=== PATIENT | female | born 1945 | race Hispanic/Latino ===

== ENCOUNTER 2019-05-16 18:19 | Emergency (ER) | payer MEDICARE ==
--- NOTE | 2019-05-16 19:45 | Cat Scan Report ---
NONENHANCED CT SCAN OF THE HEAD: INDICATION / CLINICAL INFORMATION: 74 years Female; pain/bruising after being hit by tree branch. TECHNIQUE: Routine CT head without contrast. All CT scans at this location are performed using CT dos e reduction for ALARA by means of automated exposure control. COMPARISON: None. FINDINGS: BRAIN / INTRACRANIAL CONTENTS: Soft tissue hematoma over the left lower eyelid, Thickening of the pos terior sclera below the optic nerve head; optic nerve sheath complexes normal bilaterally; retrobulba r spaces and subperiorbital spaces are normal. No subdural or epidural hematoma; no current posterior brain Inferior left posterior interhemispheric fissure has increased CT density. It is not very impressive. Subtle posttraumatic subarachnoid hemorrhage could not be excluded. I do not see intraventricular he morrhage. Interpeduncular cistern is normal. Chronic ischemic changes are seen corpus stratum. CRANIOCERVICAL JUNCTION: No significant abnormality. ORBITS: No significant abnormality of visualized orbits. SINUSES / MASTOIDS: No significant abnormality of the visualized paranasal sinuses or mastoid air finesse ls. ADDITIONAL FINDINGS: None. IMPRESSION: Soft tissue swelling over the left lower eyelid; thickening of posterior sclera on the left side belo w the optic nerve head; normal retrobulbar are spaces; questionable increased CT density in the infer ior posterior interhemispheric fissure at the level of sella turcica Artifact Subtle posttraumatic morales barachnoid hemorrhage Signer Name: Davina Veronica MD Signed: 05/16/2019 7:40 PM Workstation Name: [id number]
--- NOTE | 2019-05-16 19:51 | Cat Scan Report ---
CT maxillofacial without contrast CLINICAL HISTORY: Facial pain and trauma. FINDINGS: There is notable left periorbital soft tissue edema. The motion degrades image quality at. However, there appears to be a fracture along the left orbital floor with milder degree of depression at. There are mild adjacent inflammatory changes involving the inferior left orbital soft tissues as well as mild opacification along the inferior left maxillary sinus. Additionally, there appears to b e a defect and linear lucency along the superior medial orbital wall with faint lucency along the adj acent intracranial segment. This finding would also be indicative of slightly displaced fracture. The re is thickening of the posterior and medial sclera which is of unclear etiology though correlation w ould be needed regarding hematoma in this posttraumatic patient. The facial bones otherwise appear intact. The remaining paranasal sinuses are pneumatized. There is m ild deviation of the nasal septum toward the left. There is irregularity of the right mandibular cond yle with well corticated ossification along the anterior, medial aspect of the right TMJ. This findin g may be on an advanced degenerative or possibly chronic traumatic basis and correlation would be nee ded at. Moderate to marked arthritic changes are seen on the left. CT HEAD AND FACIAL BONES WITHOUT C ONTRAST. IMPRESSION: There is a mildly depressed fracture involving left orbital floor as well as slightly displaced fract ure of the superior orbital wall as detailed above. There is prominent left periorbital hematoma. Additionally, there is thickening of the posterior and medial left optic globe indicative of scleral hematoma. Signer Name: Gerson Ruano MD Signed: 05/16/2019 7:47 PM Workstation Name: [id number]
--- NOTE | 2019-05-16 19:51 | Cat Scan Report ---
Exam: CT cervical spine History: pain/bruising after being hit by tree branch; Technique: Contiguous thin cut axial images obtained through the cervical spine. Sagittal and welch l reconstructions performed by the technologist. All CT scans at this location are performed using CT dose reduction for ALARA by means of automated exposure control. Findings: No priors. There is no evidence of fracture or traumatic subluxation. Vertebral bodies are normal in height and alignment. Spondylotic changes are seen bilaterally at C4-C5 disc level narrowing both neuroforamina. Broad-based nonlateralizing bony spur is seen at C5-C6 disc level. Right neuroforamen is narrowed. At C6-C7 level, broad-based bony spur is seen more towards the left side. At C7-T1 disc level, shallow bony spur is seen. No significant degenerative change seen in the uncinate or facet joints. Surrounding soft tissues are grossly normal. Impression: No signs of acute bony trauma to the cervical spine. Signer Name: Davina Veronica MD Signed: 05/16/2019 7:47 PM Workstation Name: [id number]
[2019-05-16 19:53] LABS: Hematocrit 40.4 % (30.3-42.9); Hemoglobin 13.8 gm/dl (10.1-14.3); Mean Corpuscular HGB Conc 34 % (30-34); Mean Corpuscular Volume 89 fl (79-97); Platelet Count 266 K/mm3 (140-440); Red Blood Count 4.54 M/mm3 (3.65-5.03); Red Cell Distribution Width 12.6 % (13.2-15.2)
--- NOTE | 2019-05-16 20:03 | Emergency Department Report ---
ED Head Trauma HPI - General Chief complaint: Eye Problems Stated complaint: MAHAN HIT PT IN EYE Time Seen by Provider: 05/16/19 19:45 Source: patient Mode of arrival: Ambulatory Limitations: No Limitations - History of Present Illness Initial comments: Patient is a 74-year-old female that presents emergency room with complaints of left eye pain and headache. Patient states she was hit in her left side of her head and left eye with a branch while doing yard work. Patient denies loss of consciousness. Patient states she lost the vision in her left eye as soon as it happened. Patient states that her pain in her left head and left eye is a 10 out of 10. Patient states the pain is worse with movement and better with rest. Patient states that her vision is worse with movement of her eye. Patient states she has neck pain. Patient states her neck pain is a 4 out of 10. Patient states her neck pain is better with rest and worse with movement. Patient states the vision in her right eye is normal. Patient denies chest pain. Patient denies fever and chills. Patient denies shortness of breath. Patient denies other pain. MD Complaint: head injury, head pain -: Sudden Mechanism of Injury: other Location: frontal, face Loss of Consciousness: no Previous Trauma to this Area: No Place: home Severity: severe Severity scale (0 -10): 10 Quality: sharp Consistency: constant Other Injuries: laceration, eye(s) Context: on Aspirin Associated Symptoms: vision changes, vertigo, neck pain. denies: confusion, amnesia, repetitive questioning, nausea, vomiting, syncope, numbness, weakness, tingling - Related Data Allergies/Adverse reactions: Allergies Allergy/AdvReac Type Severity Reaction Status Date / Time acetaminophen [From Percocet] Allergy Unknown Verified 05/16/19 18:39 oxycodone [From Percocet] Allergy Unknown Verified 05/16/19 18:39 Sulfa (Sulfonamide Allergy Rash Verified 05/16/19 18:39 Antibiotics) ED Review of Systems ROS: Stated complaint: MAHAN HIT PT IN EYE Other details as noted in HPI Constitutional: denies: chills, fever Eyes: eye pain, vision change. denies: eye discharge ENT: denies: ear pain, throat pain Respiratory: denies: cough, shortness of breath, SOB with exertion, SOB at rest, wheezing Cardiovascular: denies: chest pain, palpitations Endocrine: no symptoms reported Gastrointestinal: denies: abdominal pain, nausea, vomiting, diarrhea Genitourinary: denies: urgency, dysuria, discharge Musculoskeletal: denies: back pain, joint swelling, arthralgia Skin: denies: rash, lesions Neurological: headache. denies: weakness, paresthesias Psychiatric: denies: anxiety, depression Hematological/Lymphatic: denies: easy bleeding, easy bruising ED Past Medical Hx - Past Medical History Previous Medical History?: Yes Hx Hypertension: Yes Additional medical history: vertigo - Surgical History Past Surgical History?: Yes Hx Cholecystectomy: Yes Additional Surgical History: hysterectomy - Family History Family history: no significant - Social History Smoking Status: Never Smoker Substance Use Type: None ED Physical Exam - General Limitations: No Limitations General appearance: alert, in no apparent distress - Head Head exam: Present: atraumatic, normocephalic - Eye Eye exam: Present: periorbital swelling, periorbital tenderness, other (aqueous fluid noted within the left globe. Unable to see pupil of left eye. Right eye pupil is reactive to light.) - ENT ENT exam: Present: mucous membranes moist - Neck Neck exam: Present: normal inspection - Respiratory Respiratory exam: Present: normal lung sounds bilaterally. Absent: respiratory distress, wheezes, rales - Cardiovascular Cardiovascular Exam: Present: regular rate, normal rhythm. Absent: systolic murmur, diastolic murmur, rubs, gallop - GI/Abdominal GI/Abdominal exam: Present: soft, normal bowel sounds. Absent: distended, tenderness, guarding - Rectal Rectal exam: Present: deferred - Extremities Exam Extremities exam: Present: normal inspection - Back Exam Back exam: Present: normal inspection - Neurological Exam Neurological exam: Present: alert, oriented X3 - Psychiatric Psychiatric exam: Present: normal affect, normal mood - Skin Skin exam: Present: warm, dry, normal color, abrasion, other (lac to inferior and superior eye lids. bleeding controlled. ). Absent: rash ED Course Vital Signs 05/16/19 05/16/19 05/16/19 18:49 19:49 20:00 Temperature 98.7 F Pulse Rate 95 H 90 88 Respiratory 16 14 19 Rate Blood Pressure 195/86 149/81 O2 Sat by Pulse 100 96 Oximetry 05/16/19 05/16/19 20:16 20:29 Temperature 98.7 F Pulse Rate 90 90 Respiratory 28 H 28 H Rate Blood Pressure 168/66 O2 Sat by Pulse 98 98 Oximetry - Reevaluation(s) Reevaluation #1: Patient is in our waiting room and the patient has been moved to room 6. Initial evaluation done. 05/16/19 19:45 - Consultations Consultation #1: Radiologist called with results of CT of head, patient has sustained a ruptured globe and a posttraumatic subarachnoid hemorrhage. 05/16/19 19:43 Consultation #2: Transfer center paged at [place] [facility] 05/16/19 19:52 Patient has been accepted by Dr.UDOBI Jennifer. 05/16/19 20:01 - Lab Data Result diagrams: 05/16/19 19:24 05/16/19 19:24 Lab Results 05/16/19 05/16/19 Range/Units 19:24 19:24 WBC 7.5 (4.5-11.0) K/mm3 RBC 4.54 (3.65-5.03) M/mm3 Hgb 13.8 (10.1-14.3) gm/dl Hct 40.4 (30.3-42.9) % MCV 89 (79-97) fl MCH 30 (28-32) pg MCHC 34 (30-34) % RDW 12.6 L (13.2-15.2) % Plt Count 266 (140-440) K/mm3 Sodium 142 (137-145) mmol/L Potassium 3.6 (3.6-5.0) mmol/L Chloride 101.4 (98-107) mmol/L Carbon Dioxide 24 (22-30) mmol/L Anion Gap 20 mmol/L BUN 15 (7-17) mg/dL Creatinine 0.7 (0.7-1.2) mg/dL Estimated GFR > 60 ml/min BUN/Creatinine Ratio 21 % Glucose 114 H (65-100) mg/dL Calcium 10.1 (8.4-10.2) mg/dL - Radiology Data Radiology results: report reviewed NONENHANCED CT SCAN OF THE HEAD: INDICATION / CLINICAL INFORMATION: 74 years Female; pain/bruising after being hit by tree branch. TECHNIQUE: Routine CT head without contrast. All CT scans at this location are performed using CT dose reduction for ALARA by means of automated exposure control. COMPARISON: None. FINDINGS: BRAIN / INTRACRANIAL CONTENTS: Soft tissue hematoma over the left lower eyelid, Thickening of the posterior sclera below the optic nerve head; optic nerve sheath complexes normal bilaterally; retrobulbar spaces and subperiorbital spaces are normal. No subdural or epidural hematoma; no current posterior brain Inferior left posterior interhemispheric fissure has increased CT density. It is not very impressive. Subtle posttraumatic subarachnoid hemorrhage could not be excluded. I do not see intraventricular hemorrhage. Interpeduncular cistern is normal. Chronic ischemic changes are seen corpus stratum. CRANIOCERVICAL JUNCTION: No significant abnormality. ORBITS: No significant abnormality of visualized orbits. SINUSES / MASTOIDS: No significant abnormality of the visualized paranasal sinuses or mastoid air cells. ADDITIONAL FINDINGS: None. IMPRESSION: Soft tissue swelling over the left lower eyelid; thickening of posterior sclera on the left side below the optic nerve head; normal retrobulbar are spaces; questionable increased CT density in the inferior posterior interhemispheric fissure at the level of sella turcica Artifact Subtle posttraumatic subarachnoid hemorrhage CT maxillofacial without contrast CLINICAL HISTORY: Facial pain and trauma. FINDINGS: There is notable left periorbital soft tissue edema. The motion degrades image quality at. However, there appears to be a fracture along the left orbital floor with milder degree of depression at. There are mild adjacent inflammatory changes involving the inferior left orbital soft tissues as well as mild opacification along the inferior left maxillary sinus. Additionally, there appears to be a defect and linear lucency along the superior medial orbital wall with faint lucency along the adjacent intracranial segment. This finding would also be indicative of slightly displaced fracture. There is thickening of the posterior and medial sclera which is of unclear etiology though correlation would be needed regarding hematoma in this posttraumatic patient. The facial bones otherwise appear intact. The remaining paranasal sinuses are pneumatized. There is mild deviation of the nasal septum toward the left. There is irregularity of the right mandibular condyle with well corticated ossification along the anterior, medial aspect of the right TMJ. This finding may be on an advanced degenerative or possibly chronic traumatic basis and correlation would be needed at. Moderate to marked arthritic changes are seen on the left. CT HEAD AND FACIAL BONES WITHOUT CONTRAST. IMPRESSION: There is a mildly depressed fracture involving left orbital floor as well as slightly displaced fracture of the superior orbital wall as detailed above. There is prominent left periorbital hematoma. Additionally, there is thickening of the posterior and medial left optic globe indicative of scleral hematoma. Exam: CT cervical spine History: pain/bruising after being hit by tree branch; Technique: Contiguous thin cut axial images obtained through the cervical spine. Sagittal and coronal reconstructions performed by the technologist. All CT scans at this location are performed using CT dose reduction for ALARA by means of automated exposure control. Findings: No priors. There is no evidence of fracture or traumatic subluxation. Vertebral bodies are normal in height and alignment. Spondylotic changes are seen bilaterally at C4-C5 disc level narrowing both neuroforamina. Broad-based nonlateralizing bony spur is seen at C5-C6 disc level. Right neuroforamen is narrowed. At C6-C7 level, broad-based bony spur is seen more towards the left side. At C7-T1 disc level, shallow bony spur is seen. No significant degenerative change seen in the uncinate or facet joints. Surrounding soft tissues are grossly normal. Impression: No signs of acute bony trauma to the cervical spine. - Medical Decision Making Patient is a 74-year-old female that presents emergency room for left eye pain and left facial pain and neck pain. Patient was hit in the face with a branch while doing yardwork at home. Patient also complained of loss of vision in her left eye. Patient had CT and labs done. Labs were essentially unremarkable. Patient's CT shows a ruptured left globe and a possible subtle posttraumatic subarachnoid hemorrhage. Patient was transferred to [place] [facility]. Patient transferred via ground EMS. - Differential Diagnosis facial trauma, eye pain, laceration, ICH, eye injury Critical Care Time: Yes Critical care time in (mins) excluding proc time.: 45 Critical care attestation.: If time is entered above; I have spent that time in minutes in the direct care of this critically ill patient, excluding procedure time. Critical Care Time: 45 minutes ED Disposition Clinical Impression: Change in vision, Loss of vision, Neck pain, SAH (subarachnoid hemorrhage) Head injury Qualifiers: Encounter type: initial encounter Qualified Code(s): S09.90XA - Unspecified injury of head, initial encounter Ruptured globe of left eye Qualifiers: Encounter type: initial encounter Qualified Code(s): S05.32XA - Ocular laceration without prolapse or loss of intraocular tissue, left eye, initial encounter Facial laceration Qualifiers: Encounter type: initial encounter Qualified Code(s): S01.81XA - Laceration without foreign body of other part of head, initial encounter Eye pain Qualifiers: Laterality: left Qualified Code(s): H57.12 - Ocular pain, left eye Disposition: DC/TX-70 ANOTHER TYPE HLTHCARE Is pt being admited?: No Does the pt Need Aspirin: No Condition: Critical Time of Disposition: 20:06
[2019-05-16 20:17] VITALS: BP 168/66
[2019-05-16 20:19] LABS: BUN/Creatinine Ratio 21; Blood Urea Nitrogen 15 mg/dL (7-17); Calcium 10.1 mg/dL (8.4-10.2); Hemolysis Index 10
== END 2019-05-16 20:29 | disposition other institution (70) ==
LOC: ED 18:19
DX: S05.32XA Ocular laceration without prolapse or loss of intraocular tissue, left eye, initial encounter (principal); S01.81XA Laceration without foreign body of other part of head, initial encounter; I60.9 Nontraumatic subarachnoid hemorrhage, unspecified; H54.7 Unspecified visual loss; I10 Essential (primary) hypertension; Z90.49 Acquired absence of other specified parts of digestive tract; Z90.710 Acquired absence of both cervix and uterus; X58.XXXA Exposure to other specified factors, initial encounter; Y93.89 Activity, other specified; Y92.89 Other specified places as the place of occurrence of the external cause; Y99.8 Other external cause status
CPT/HCPCS: 36415; 70450; 70486; 72125; 80048; 85027